=== PATIENT | male | born 1960 | race Caucasian/White ===

== ENCOUNTER 2017-06-10 06:45 | Observation (INO) | payer OTHER ==
[2017-06-10] MEDS ORDERED: FAMOTIDINE 20 MG TAB PO ONE (06:49)
[2017-06-10] MEDS ORDERED: diphenhydrAMINE 25 MG CAP PO ONE ×2 (06:49→07:14)
[2017-06-10] MEDS ORDERED: ASPIRIN EC 325 MG TAB PO ONE ×3 (06:49→10:56)
[2017-06-10] MEDS ORDERED: NS 1,000 ML IV ONE (06:49)
[2017-06-10] MEDS ORDERED: DIAZEPAM 5 MG TAB PO ONE (06:49)
[2017-06-10] MEDS ORDERED: DIAZEPAM 5 MG TAB ONE (07:14)
[2017-06-10] MEDS ORDERED: FAMOTIDINE 20 MG TAB ONE (07:14)
[2017-06-10 07:21] LABS: % IMMATURE GRANULYOCYTES 0.4 % (0.0-1.1); ABSOLUTE IMMATURE GRANULOCYTES 0.02 10^3/uL (0.00-0.10); ADD DIFF? NO; ADD MORPH? NO; ADD SCAN? NO; ATYPICAL LYMPHOCYTE FLAG 10 (0-99); FRAGMENT RBC FLAG 0 (0-99); HEMATOCRIT 42.7 % (40.0-51.0); HEMOGLOBIN 14.8 g/dL (13.7-17.5); LEFT SHIFT FLG 0 (0-99); LIPEMIA HEMOLYSIS FLAG 90 (0-99); MEAN CELL HEMOGLOBIN CONCENTR. 34.7 g/dL (32.4-36.7); MEAN CELL VOLUME 89.3 fL (81.5-99.8); MEAN PLATELET VOLUME 9.2 fL (8.7-11.7); PLATELET CLUMPS FLAG 10 (0-99); PLATELET COUNT 142 10^3/uL (150-400); RED BLOOD CELL COUNT 4.78 10^6/uL (4.40-6.38); RED CELL DISTRIBUTION WIDTH 12.4 % (11.5-15.2)
[2017-06-10 07:30] LABS: INR 1.04 (0.83-1.16); PROTIME(PATIENT) 13.5 SEC (12.0-15.0)
[2017-06-10] MEDS ORDERED: LIDOCAINE 1% 300 MG/30 ML SDV ONE (07:43)
[2017-06-10] MEDS ORDERED: IOPAMIDOL (ISOVUE-370) 150 ML BTL IV ONE (07:43)
[2017-06-10] MEDS ORDERED: fentaNYL 100 MCG/2 ML INJ ONE (07:43)
[2017-06-10] MEDS ORDERED: MIDAZOLAM 2 MG/2 ML VIAL ONE (07:43)
[2017-06-10 07:47] LABS: ANION GAP 14 mEq/L (8-16); CALCIUM 9.4 mg/dL (8.5-10.4); CARBON DIOXIDE 23 mEq/l (22-31); CHLORIDE 106 mEq/L (97-110); CHOLESTEROL 115 mg/dL (140-220); CHOLESTEROL/HDL RATIO 2.21 RATIO (1.00-4.97); CREATININE 0.8 mg/dL (0.7-1.3); GLOMERULAR FILTRATION RATE > 60; GLUCOSE 111 mg/dL (70-100); HIGH DENSITY LIPOPROTEIN 52 mg/dL (40-65); LDL/HDL RATIO 0.92 RATIO (1.00-3.64); LOW DENSITY LIPOPROTEIN 48 mg/dL (80-100); MAGNESIUM 1.8 mg/dL (1.6-2.3); NON-HIGH DENSITY LIPOPROTEIN 63 mg/dL (90-129); POTASSIUM 4.6 mEq/L (3.5-5.2); SODIUM 143 mEq/L (134-144); TRIGLYCERIDE 79 mg/dL (40-150); VERY LOW DENSITY LIPOPROTEINS 15 mg/dL (8-25)
--- NOTE | 2017-06-10 09:03 | PDGENHP ---
History & Physical History of Present Illness: 56 year old with high risk findings on nuclear stress test with multiple cad risk factorsl. Pertinent Past, Social, Family History: HTN, DM, HLP, positive calcium score Relevant Physical Exam: Awake, Alert, Appropriate
--- NOTE | 2017-06-10 09:04 | PDPROPOC ---
Sedation Plan of Care Sedation Plan of Care: vital signs stable, mental status noted, patient educated of risks, benefits, alternatives, patient can tolerate sedation ASA Classification: ASA 2 Planned drugs: fentanyl, midazolam Mallampati Score: Class 2 Mallampati Reference Image: Patient passed 3-3-2 rule?: Yes
[2017-06-10] MEDS ORDERED: BIVALIRUDIN 250 MG/5 ML VIAL IV ONE (09:44)
[2017-06-10] MEDS ORDERED: TICAGRELOR 90 MG TAB ONE (10:38)
[2017-06-10] MEDS ORDERED: LORazepam 2 MG/ML INJ IVP PRN (10:56)
[2017-06-10] MEDS ORDERED: ONDANSETRON 4 MG/2 ML VIAL IVP PRN (10:56)
[2017-06-10] MEDS ORDERED: NITROGLYCERIN 0.4 MG BTL SL PRN (10:56)
[2017-06-10] MEDS ORDERED: ATROPINE SULFATE 1 MG/10 ML SYR IVP PRN (10:56)
[2017-06-10] MEDS ORDERED: TEMAZEPAM 15 MG CAP PO PRN (10:56)
[2017-06-10] MEDS ORDERED: TICAGRELOR 90 MG TAB PO ONE (10:56)
--- NOTE | 2017-06-10 10:59 | CPEKG ---
Heart Rate: 58 RR Interval: 1034 P-R Interval: 200 QRSD Interval: 100 QT Interval: 436 QTC Interval: 429 P [place]: 37 QRS [place]: 82 T Wave [place]: 30 EKG Severity - NORMAL ECG - EKG Impression: SINUS RHYTHM Electronically Signed By: Todd Hays 10-Jun-2017 17:36:02
--- NOTE | 2017-06-10 12:50 | CPIP ---
[f rep st] INVASIVE CARDIAC PROCEDURE DATE OF PROCEDURE: 06/10/2017 PROCEDURES PERFORMED: 1. Coronary angiography. 2. Stenting of left anterior descending coronary artery with Synergy drug-eluting stent. INDICATION: 1. High risk abnormal stress test. 2. Class 2 angina. 3. Proximal left anterior descending artery disease. ACCESS AND CORONARY ANGIOGRAPHY: Access and coronary angiography were performed by Dr. Aniket Lucas. Coronary angiography was notable for high-grade disease involving the proximal left anterior descendi ng coronary artery. I was consulted to perform percutaneous coronary intervention on this vessel. PERCUTANEOUS CORONARY INTERVENTION OF THE LEFT ANTERIOR DESCENDING CORONARY ARTERY: A 6-Hungarian JL 4. 5 catheter was advanced to the left main coronary artery and images obtained. Angiography confirmed the presence of high-grade disease involving the proximal left anterior descending coronary artery. A Luge wire was placed in the distal vessel and position verified by angiography. A 3.0 x 12 Emerge balloon was used to pre-dilate the lesion. Followup angiography demonstrated significant residual st enosis and BEATRIZ-3 flow. A 3.5 x 24 Synergy drug-eluting stent was then placed across the lesion and deployed. Followup angiography demonstrated incomplete stent expansion in the proximal portion of th e stent. There was BEATRIZ-3 flow. A 3.75 x 15 noncompliant balloon was taken in the proximal portion of the stent, deployed at 16 atmospheres. Followup angiography demonstrated BEATRIZ-3 flow, no residual stenosis. COMPLICATIONS: None. CONCLUSIONS: 1. Single-vessel coronary artery disease involving the proximal left anterior descending coronary ar [place]. 2. Normal left ventricular size and systolic function. 3. Status post successful percutaneous coronary intervention of the left anterior descending coronar y artery using Synergy drug-eluting stent. /[id number]/MODL
--- NOTE | 2017-06-10 15:15 | GPN ---
[f rep st] PROCEDURE NOTE DATE OF PROCEDURE: 06/10/2017 PROCEDURE PERFORMED: Diagnostic left heart catheterization. INDICATION FOR PROCEDURE: High risk stress test findings with evidence of anterior, as well as infer ior ischemia with positive ECG changes with exercise in the setting of a known history of coronary ar [place] disease with markedly elevated calcium score of 1680 coupled with multiple coronary artery disea se risk factors, including hypertension, hyperlipidemia, and diabetes. PROCEDURE: After informed consent was obtained, the patient was brought to the cardiac catheterizati on lab where he was prepped and draped in a sterile fashion. Using 1% lidocaine, the right groin was anesthetized. Using modified Seldinger technique, a 6-Luxembourgish catheter was placed in the right commo n femoral artery without complications. Initial attempts to cannulate the left main with a JL4 casi ter were unsuccessful. This was removed over a guidewire. JL4.5 catheter was used to cannulate the left main. Images of the left coronary anatomy were obtained in multiple projections. JL4 catheter was exchanged over a guidewire for a JR4 catheter. JR4 catheter was used to cannulate the right kay nary artery. Images were obtained in multiple projections. JR4 catheter was exchanged over a guidew cecilia for an angled pigtail catheter. Angled pigtail catheter was used to cross the aortic valve. Lef t ventriculogram was performed. LVEDP was assessed, and aortic valve gradient was assessed. Angled pigtail catheter was removed over a guidewire without complications. Right common femoral artery ang iography was also obtained demonstrating appropriate placement of right common femoral artery sheath at the level of the femoral head with no evidence of complications or trauma to the femoral or iliac vessel. FINDINGS: 1. Left main is short in size that bifurcates into the left anterior descending and left circumflex coronary artery. There is no evidence of coronary artery disease within the left main. 2. Left anterior descending demonstrates a proximal stenosis of 70% to 80%. This is just distal to the first septal branch. There are some mild luminal irregularities within the mid and distal segmen ts of the LAD. 3. Circumflex vessel is a large caliber dominant vessel with 2 large obtuse marginal branches. Ther e is no evidence of coronary artery disease within the diagonal branches. There are some mild lumina l irregularities in the distal circumflex vessel. 4. The right coronary artery is a small sub 2 mm nondominant right coronary artery with no evidence of flow-limiting disease. HEMODYNAMICS: There is evidence of anterior wall hypokinesis with LVEF of 50% to 55%, LVEDP 17 mmHg, aortic valve gradient none. CONCLUSIONS: Severe single-vessel coronary artery disease with significant stenosis in the proximal LAD. In the setting of anterior wall hypokinesis and evidence of anterior wall ischemia on his nucle ar stress test, will plan for percutaneous coronary intervention to the proximal LAD. I have reviewe d these images with my interventional colleague, Dr. Espino. PLAN: 1. Plan for PCI to the proximal LAD. 2. Aggressive management of risk factors. 3. Patient will be on dual antiplatelet therapy. /[id number]/MODL
--- NOTE | 2017-06-10 15:30 | CPEKG ---
Heart Rate: 60 RR Interval: 1000 P-R Interval: 196 QRSD Interval: 100 QT Interval: 412 QTC Interval: 412 P [place]: 34 QRS [place]: 82 T Wave [place]: 15 EKG Severity - NORMAL ECG - EKG Impression: SINUS RHYTHM Electronically Signed By: Todd Hays 10-Jun-2017 17:36:07
[2017-06-10] MEDS ORDERED: ACETAMINOPHEN 325 MG TAB PO PRN (19:47)
[2017-06-10] MEDS: TICAGRELOR 90 MG TAB PO SCH (22:48)
[2017-06-11] MEDS ORDERED: PNEUMOCOCCAL 0.5ML VACCINE VIAL IM ONE ×2 (01:35→06:30)
[2017-06-11 05:12] LABS: % IMMATURE GRANULYOCYTES 0.3 % (0.0-1.1); ABSOLUTE IMMATURE GRANULOCYTES 0.02 10^3/uL (0.00-0.10); ADD DIFF? NO; ADD MORPH? NO; ADD SCAN? NO; ATYPICAL LYMPHOCYTE FLAG 0 (0-99); FRAGMENT RBC FLAG 0 (0-99); HEMATOCRIT 43.5 % (40.0-51.0); HEMOGLOBIN 14.8 g/dL (13.7-17.5); LEFT SHIFT FLG 0 (0-99); LIPEMIA HEMOLYSIS FLAG 90 (0-99); MEAN CELL HEMOGLOBIN 30.6 pg (27.9-34.1); MEAN CELL VOLUME 89.9 fL (81.5-99.8); MEAN PLATELET VOLUME 9.3 fL (8.7-11.7); PLATELET CLUMPS FLAG 0 (0-99); PLATELET COUNT 134 10^3/uL (150-400); RED BLOOD CELL COUNT 4.84 10^6/uL (4.40-6.38); RED CELL DISTRIBUTION WIDTH 12.4 % (11.5-15.2)
[2017-06-11 05:33] LABS: ANION GAP 10 mEq/L (8-16); CALCIUM 9.6 mg/dL (8.5-10.4); CARBON DIOXIDE 27 mEq/l (22-31); CHLORIDE 104 mEq/L (97-110); CREATININE 0.8 mg/dL (0.7-1.3); GLOMERULAR FILTRATION RATE > 60; GLUCOSE 113 mg/dL (70-100); POTASSIUM 4.6 mEq/L (3.5-5.2); SODIUM 141 mEq/L (134-144)
[2017-06-11 08:17] VITALS: O2SAT 94
--- NOTE | 2017-06-11 08:48 | CPEKG ---
Heart Rate: 69 RR Interval: 870 P-R Interval: 200 QRSD Interval: 104 QT Interval: 408 QTC Interval: 437 P [place]: 55 QRS [place]: 97 T Wave [place]: 29 EKG Severity - OTHERWISE NORMAL ECG - EKG Impression: SINUS RHYTHM EKG Impression: BORDERLINE RIGHT AXIS DEVIATION Electronically Signed By: Todd Hays 11-Jun-2017 15:52:30
[2017-06-11] MEDS ORDERED: ASPIRIN EC 81 MG TAB PO SCH (09:00)
[2017-06-11] MEDS: TICAGRELOR 90 MG TAB PO SCH (09:04)
[2017-06-11 10:55] VITALS: BP 123/76; PULSE 81; RESP 17; TEMP 98
--- NOTE | 2017-06-11 16:51 | ASDISCHSUM ---
Discharge Information Plan Status:Home with No Needs Medically Cleared to Leave:06/10/2017 Discharge Date:06/11/2017 01:36 PM CM D/C Disposition: ADT D/C Disposition:Home, Routine, Self-Care Projected Discharge Date:06/11/2017 12:00 AM Transportation at D/C: Discharge Delay Reason: Follow-Up Date:06/11/2017 12:00 AM Discharge Slot: Final Diagnosis: Placement Information Patient Contact Information Contact Name:PB Relationship: Address:[address] City:[place] Alternate Phone: [facility]/Zip Code:[place] [address] Email: Financial Information Financial Class:HMO and PPO Plans Primary Plan Desc:[employer] Primary Plan Number:[id number] Secondary Plan Desc: Secondary Plan Number: Assessment Information Intervention Information
[2017-06-12] MEDS ORDERED: LISINOPRIL 5 MG TAB PO SCH (09:00)
[2017-06-12] MEDS ORDERED: ROSUVASTATIN CALCIUM 40 MG TAB PO SCH (09:00)
[2017-06-12] MEDS ORDERED: ALLOPURINOL 300 MG TAB PO SCH (09:00)
[2017-06-12] MEDS ORDERED: Herbals/Supplements -Info Only PO SCH (09:00)
[2017-06-12] MEDS ORDERED: metFORMIN HCL 500 MG TAB PO SCH (09:00)
--- NOTE | 2017-06-14 08:49 | GDS ---
[f rep st] DISCHARGE SUMMARY ADMIT DIAGNOSES: 1. Coronary artery disease. 2. Abnormal nuclear stress test. 3. Planned cardiac catheterization. DISCHARGE DIAGNOSES: 1. Status post stent to the left anterior descending. 2. Coronary artery disease. 3. Hypertension. COURSE OF HOSPITALIZATION: This gentleman had a positive nuclear stress test showing evidence of ant erior and inferior ischemia with positive EKG changes with exercise. He had known coronary artery di sease based on cardiac calcium score of 1680, along with multiple coronary disease risks including hy pertension, hyperlipidemia, and diabetes. He was taken to the cardiac earthmoving labourer by Dr. Aniket Lucas whe re a high-grade lesion was noted in the LAD. Dr. Shoaib Espino then took over as interventionalist and placed a drug-eluting stent to the proximal LAD. There were no complications. He was taken to PCU for overnight observation, where he has done well. He has been up ambulating with no groin site blee ding. His blood pressure has been elevated. Antihypertensive medication was given with adequate res ults. At this time, he currently is stable for discharge. DISCHARGE MEDICATIONS: He will go home on allopurinol 150 mg daily, lisinopril 5 mg daily, aspirin 8 1 mg daily, metformin 2000 mg daily to be started 48 hours post procedure, Crestor 40 mg daily, herba l supplements 1 daily, Tylenol 325-650 mg every 6 hours as needed for pain, Brilinta 90 mg twice dena y. ALLERGIES: He has no known allergies. EXAM: VITAL SIGNS: On day of discharge, blood pressure 123/76, heart rate 81, oxygen saturation 94% . CARDIAC: EKG normal sinus rhythm. Heart rate regular. No murmurs, rubs, gallops. LUNGS: Sound s are clear to auscultation. No wheezes, rales, or rhonchi. EXTREMITIES: Peripheral pulses are 2+ bilaterally with no edema. Right groin site is intact with no bleeding, induration or pain. No numb ness of the leg. LABS: Sodium 141, potassium 4.6, creatinine 0.8, estimated GFR greater than 60, glucose 113. Total cholesterol 115, triglyceride 79, LDL 48, HDL 52. EKG on 06/11/2017 showed a regular sinus rhythm wi th a rate of 69, borderline right axis deviation. DISCHARGE PLAN: He will be discharged home with attention to his blood pressure management, diabetes management and cardiac diet and exercise. He is to follow a low-fat, low-salt cardiac diet. He gris l follow up with Dr. Aniket Lucas in 1 week, appointment has been made. He is interested in cardiac re hab at [facility]. Information will be faxed to [facility] to set up cardiac rehab appointments. At this time, he currently is stable for discharge. /[id number]/MODL
== END 2017-06-11 13:36 | disposition home or self-care (01) ==
LOC: FCATH 06:45 → F2W 11:03
PROVIDERS: ADMIT Internal Medicine Cardiovascular Disease; ATTEND Internal Medicine Cardiovascular Disease
PROC: 027034Z Dilation of Coronary Artery, One Artery with Drug-eluting Intraluminal Device, Percutaneous Approach (ICD-10-PCS; principal; 2017-06-10)
PROC: 4A023N7 Measurement of Cardiac Sampling and Pressure, Left Heart, Percutaneous Approach (ICD-10-PCS; 2017-06-10)
PROC: B2111ZZ Fluoroscopy of Multiple Coronary Arteries using Low Osmolar Contrast (ICD-10-PCS; 2017-06-10)
PROC: B2151ZZ Fluoroscopy of Left Heart using Low Osmolar Contrast (ICD-10-PCS; 2017-06-10)
DX: I25.119 Atherosclerotic heart disease of native coronary artery with unspecified angina pectoris (principal); I10 Essential (primary) hypertension; E78.5 Hyperlipidemia, unspecified; E11.9 Type 2 diabetes mellitus without complications; Z23 Encounter for immunization; Z82.49 Family history of ischemic heart disease and other diseases of the circulatory system
CPT/HCPCS: 90471; 92928; 93005; 93458; C1725; C1887; G0378; C1760; C1874; C9600; G0009; J0583; J1644; J2250; J3010; Q9967